=== PATIENT | female | born 1990 | race Caucasian/White ===

== ENCOUNTER 2016-05-18 12:22 | Emergency (ER) | payer OTHER ==
[~2016-05-18] VITALS: Ht 162.6 cm; Wt 59.0 kg
[2016-05-18 12:22] VITALS: BP_SYST 108
--- NOTE | 2016-05-18 12:22 | NUR ---
BROUGHT BACK TO BED #6 AND TRIAGED. REPORT GIVEN TO KIARA
--- NOTE | 2016-05-18 12:30 | NUR ---
ED MD CAMARA AT PATIENT BEDSIDE FOR MEDICAL EXAMINATION
--- NOTE | 2016-05-18 12:32 | NUR ---
EMT AT BEDSIDE TO CLEAN AND IRRIGATE WOUND
[2016-05-18] MEDS ORDERED: ONDANSETRON 4 MG ODT TAB PO ONE (12:45)
[2016-05-18] MEDS ORDERED: HYDROcodone/ACETAMIN 5-325 MG TAB (NORCO/ VICODIN) PO ONE (12:45)
[2016-05-18] MEDS ORDERED: KETOROLAC TROMETHAMINE 60 MG/2 ML VIAL IM ONE (12:45)
[2016-05-18] MEDS ORDERED: AMOXICILLIN/CLAVULANATE POTASSIUM 875 MG TABLET PO ONE (12:45)
--- NOTE | 2016-05-18 12:49 | NUR ---
PT ARRIVED TO ER VIA WALK IN WITH CHIEF COMPLAINT OF RIGHT FOREARM PAIN SECONDARY TO DOG BITE. THE PT PRESENTS WITH SWELLING AND ABRASIONS TO RIGHT FOREARM. CIRCULATION DISTAL TO THE EXTREMITY INTACT. SENSATION PRESENT. LIMITED RANGE OF MOTION TO HAND DUE TO PAIN. PT REPORTS 8/10 PAIN. NO OTHER COMPLAINTS OF INJURY TO OTHER SITES. WILL CONTINUE TO MONITOR
--- NOTE | 2016-05-18 13:11 | NUR ---
RADIOLOGY AT BEDSIDE FOR X-RAY OF RIGHT FOREARM
--- NOTE | 2016-05-18 13:20 | NUR ---
MEDICATIONS ADMINISTERED. PT TOLERATED WELL. WILL CONTINUE TO MONITOR
[2016-05-18] MEDS ORDERED: BACITRACIN 1 GM OINT TP ONE ×2 (13:40→13:45)
[2016-05-18 14:29] VITALS: BP_SYST 108
== END 2016-05-18 14:29 | disposition home or self-care (01) ==
LOC: SED 12:22
DX: S61.251A Open bite of left index finger without damage to nail, initial encounter (principal); S51.851A Open bite of right forearm, initial encounter; Z88.1 Allergy status to other antibiotic agents; W54.0XXA Bitten by dog, initial encounter; Y93.89 Activity, other specified; Y92.099 Unspecified place in other non-institutional residence as the place of occurrence of the external cause; Y99.8 Other external cause status
CPT/HCPCS: 73110; 96372; 99284; J1885; Q0162